=== PATIENT | male | born 1950 | race African-American/Black ===

== ENCOUNTER → 2016-07-29 | Outpatient (CLI) | payer OTHER ==
[~2016-07-29] MED LIST: IOHEXOL 300 MG/ML 75 ML VIAL. IV ONE
--- NOTE | 2016-07-29 14:15 | RAD ---
Indication aortic ectasia. Contrast imaging through the chest was performed. Images were reformatted in the coronal and sagittal planes. 75 cc of Omnipaque 300 was administered. No prior imaging is available. Imaging through the upper abdomen shows no acute finding. There are bilateral renal cysts. There is slight dilatation of the proximal descending thoracic aorta. It is dilated maximally to approximately 3.4 cm.. No acute finding is seen associated with the thoracic aorta. There is a nodule in the right middle lobe measuring approximately 6 mm (image 60 series 4). Follow-up imaging along the lines of the Fleischner criteria should be considered. No additional pulmonary nodule is seen. Acute finding in the chest is not seen. IMPRESSION: No acute finding in the chest. Minimal dilatation of the proximal descending thoracic aorta. 6 mm nodule right middle lobe. Follow-up imaging along the lines of the Fleischner criteria should be considered PQRS Compliance Statement: One or more of the following individualized dose reduction techniques were utilized for this examination: 1. Automated exposure control 2. Adjustment of the mA and/or kV according to patient size 3. Use of iterative reconstruction technique
== END | disposition home or self-care (01) ==
LOC: CT 13:23
PROVIDERS: ATTEND Nurse Practitioner Family
DX: I77.810 Thoracic aortic ectasia (principal); J20.9 Acute bronchitis, unspecified; H67.3 Otitis media in diseases classified elsewhere, bilateral; R05 Cough
CPT/HCPCS: 71260; Q9967